=== PATIENT | female | born 1965 | race African-American/Black ===

== ENCOUNTER 2017-10-04 07:00 | Outpatient (RCR) | payer OTHER | END 2017-10-16 | LOC: PT 07:00 | PROVIDERS: ATTEND Psychiatry & Neurology Pain Medicine | DX: M53.3 Sacrococcygeal disorders, not elsewhere classified (principal); M54.5 Low back pain; M62.81 Muscle weakness (generalized) ==

== ENCOUNTER 2021-03-12 15:04 | Outpatient (RCR) | payer OTHER | END 2021-03-16 | LOC: PT 15:04 | PROVIDERS: ATTEND Family Medicine ==

== ENCOUNTER 2021-04-10 14:00 | Outpatient (RCR) | payer OTHER | END 2021-04-15 | LOC: PT 14:00 | PROVIDERS: ATTEND Family Medicine | DX: M48.061 Spinal stenosis, lumbar region without neurogenic claudication (principal); M47.816 Spondylosis without myelopathy or radiculopathy, lumbar region; M43.10 Spondylolisthesis, site unspecified ==

== ENCOUNTER 2021-05-08 14:00 | Outpatient (RCR) | payer OTHER | END 2021-05-16 | LOC: PT 14:00 | PROVIDERS: ATTEND Family Medicine | DX: M48.061 Spinal stenosis, lumbar region without neurogenic claudication (principal); M47.816 Spondylosis without myelopathy or radiculopathy, lumbar region | CPT/HCPCS: 97139 ==